=== PATIENT | female | born 1935 | race Caucasian/White ===

== ENCOUNTER → 2017-11-02 | Outpatient (CLI) | payer MEDICARE | END | disposition home or self-care (01) | LOC: KCIC 13:20 | DX: M47.896 Other spondylosis, lumbar region (principal); M41.86 Other forms of scoliosis, lumbar region | CPT/HCPCS: 72110 ==

== ENCOUNTER → 2017-12-18 | Outpatient (CLI) | payer MEDICARE | END | disposition home or self-care (01) | LOC: KCIC MRI 11:17 | DX: M47.817 Spondylosis without myelopathy or radiculopathy, lumbosacral region (principal); M48.061 Spinal stenosis, lumbar region without neurogenic claudication; M41.86 Other forms of scoliosis, lumbar region; D18.09 Hemangioma of other sites | CPT/HCPCS: 72148 ==

== ENCOUNTER → 2020-08-23 | Outpatient (CLI) | payer MEDICARE, OTHER ==
[2020-07-27 11:05] VITALS: BP 144/59
[~2020-08-23] MED LIST: ACET500T68 PO; AMLO2.5T5 PO; APIX2.5T PO; BUDE10.2 IH; CALC-642 PO; CRESTOR5 MG PO; DILT360T7 PO; DIPH25TA24 PO; DOCU-109 PO; DOXY100T PO; FLUT16SP NS; GLUC-11 PO; HYDR28.337 TP; HYDR30CR61 TP; INSU100I13 SQ; INSU100I17 SQ; LATA2.5D3 EACHEYE; LOSA1TAB22 PO; NAPR-683 PO; OMEP20CA16 PO; POTA20TA4 PO; PRED20TA PO; PUMP300C PO; TURM500C4 PO; UBID100C26 PO; VENTOLIN HFA18 GM INH
--- NOTE | 2020-08-23 15:00 | KCIC ---
EXAM: Chest CT without intravenous contrast. HISTORY: Covid-19. TECHNIQUE: Computed tomographic images of the chest were obtained without contrast. Multiplanar reformatting was performed. *One or more of the following individualized dose reduction techniques were utilized for this examination: 1. Automated exposure control. 2. Adjustment of the mA and/or kV according to patient size. 3. Use of iterative reconstruction technique. COMPARISON: Chest radiograph dated 07/24/2020. FINDINGS: There is extensive bilateral multifocal groundglass infiltrate with superimposed areas of interlobular and intralobular line thickening. No consolidation, pleural effusion or pneumothorax is seen. No pulmonary nodule is seen. The heart is normal in size. The aorta is normal in caliber. There are a few calcified granulomas. There are noncalcified mediastinal lymph nodes, the largest of which is a precarinal lymph node measuring 1.7 cm on transaxial images. There is a small hiatal hernia. No hepatic lesion is seen on the [id number]. The spleen appears to be normal in size. The adrenal glands are unremarkable. There is no suspicious osseous lesion. There are degenerative changes involving the thoracic spine. There are few small endplate Schmorl's nodes. IMPRESSION: 1. Extensive bilateral multifocal groundglass infiltrate. 2. Prominent mediastinal lymph nodes. These may be reactive given the aforementioned findings. Electronically signed by: Vivian Estes MD (08/23/2020 2:58 PM) [id number]
== END ==
LOC: KCIC CT 13:45
PROVIDERS: ATTEND Internal Medicine Pulmonary Disease
DX: J84.10 Pulmonary fibrosis, unspecified (principal); K44.9 Diaphragmatic hernia without obstruction or gangrene; M51.44 Schmorl's nodes, thoracic region; M47.814 Spondylosis without myelopathy or radiculopathy, thoracic region; R06.02 Shortness of breath
CPT/HCPCS: 71250